=== PATIENT | female | born 1995 | race Caucasian/White ===

== ENCOUNTER 2016-10-13 17:23 | Emergency (ER) | payer MEDICAID ==
[~2016-10-13] VITALS: Ht 157.5 cm; Wt 66.3 kg
[2016-10-13 19:50] VITALS: BP 113/71
== END 2016-10-13 19:50 | disposition home or self-care (01) ==
LOC: ED 17:23
DX: O26.891 Other specified pregnancy related conditions, first trimester (principal); N76.0 Acute vaginitis; B96.89 Other specified bacterial agents as the cause of diseases classified elsewhere; Z3A.01 Less than 8 weeks gestation of pregnancy
CPT/HCPCS: 87491; 87591

== ENCOUNTER 2016-11-30 22:07 | Emergency (ER) | payer MEDICAID ==
[2016-11-30 23:16] LABS: microscopic required? NO
[2016-11-30 23:24] LABS: UA SPECIFIC GRAVITY 1.025 (1.005-1.035); urine erythrocyte NEGATIVE (NEGATIVE)
[2016-11-30 23:26] LABS: BASOPHIL % 0.3 % (0-2); PLATELET COUNT 236 x10^3mcL (130-400)
[2016-11-30 23:27] LABS: RED CELL DISTRIBUTION WIDTH 15.5 % (11.5-14.5)
[2016-11-30 23:37] LABS: CALCIUM 8.4 mg/dL (8.5-10.1); CARBON DIOXIDE 24.7 mmol/L (21-32); CHLORIDE SERUM 105 mmol/L (98-107); CREATININE SERUM 0.8 mg/dL (0.6-1.0); GFR1 > 60 mL/min; GLUCOSE SERUM 92 mg/dL (74-106); POTASSIUM SERUM 3.6 mmol/L (3.5-5.1); SODIUM SERUM 141 mmol/L (136-145)
[2016-11-30 23:41] LABS: ALBUMIN 3.4 g/dL (3.4-5.0); ALKALINE PHOSPHATASE 64 U/L (46-116); ALT/SGPT 91 U/L (14-59); AMYLASE 32 U/L (25-115); AST/SGOT 71 U/L (15-37); BILIRUBIN TOTAL 0.3 mg/dL (0.20-1.00); LIPASE 100 IU/L (73-393); TOTAL PROTEIN, SERUM 7.6 g/dL (6.4-8.2)
[2016-12-01 01:34] VITALS: BP 105/60
== END 2016-12-01 01:34 | disposition home or self-care (01) ==
LOC: ED 22:07
PROVIDERS: Emergency Medicine
DX: R10.9 Unspecified abdominal pain (principal); R19.7 Diarrhea, unspecified; R11.2 Nausea with vomiting, unspecified
CPT/HCPCS: Q0092

== ENCOUNTER 2017-04-09 11:05 | Emergency (ER) | payer MEDICAID ==
[~2017-04-09] VITALS: Ht 157.5 cm; Wt 62.8 kg
[2017-04-09 12:55] LABS: BASOPHIL % 0.5 % (0-2); PLATELET COUNT 253 x10^3mcL (130-400)
[2017-04-09 12:56] LABS: RED CELL DISTRIBUTION WIDTH 15.3 % (11.5-14.5)
[2017-04-09 13:01] LABS: CALCIUM 8.7 mg/dL (8.5-10.1); CHLORIDE SERUM 104 mmol/L (98-107); CREATININE SERUM 0.8 mg/dL (0.6-1.0); GFR1 > 60 mL/min; GLUCOSE SERUM 84 mg/dL (74-106); POTASSIUM SERUM 4.2 mmol/L (3.5-5.1); SODIUM SERUM 139 mmol/L (136-145)
[2017-04-09 13:06] LABS: ALBUMIN 3.5 g/dL (3.4-5.0); ALKALINE PHOSPHATASE 55 U/L (46-116); ALT/SGPT 31 U/L (14-59); AMYLASE 48 U/L (25-115); AST/SGOT 23 U/L (15-37); BILIRUBIN TOTAL 0.2 mg/dL (0.20-1.00); LIPASE 170 IU/L (73-393); TOTAL PROTEIN, SERUM 7.4 g/dL (6.4-8.2)
[2017-04-09 14:28] VITALS: BP 104/61
== END 2017-04-09 14:28 | disposition home or self-care (01) ==
LOC: ED 11:05
PROVIDERS: Specialist
DX: N76.0 Acute vaginitis (principal); R19.7 Diarrhea, unspecified
CPT/HCPCS: 36415; 87491; 87591; J0696

== ENCOUNTER 2017-04-14 00:54 | Emergency (ER) | payer MEDICAID ==
[~2017-04-14] VITALS: Ht 157.5 cm; Wt 63.5 kg
[2017-04-14 03:41] VITALS: BP 112/75
== END 2017-04-14 03:41 | disposition home or self-care (01) ==
LOC: ED 00:54
DX: N76.0 Acute vaginitis (principal); F41.9 Anxiety disorder, unspecified

== ENCOUNTER 2017-05-02 20:51 | Emergency (ER) | payer MEDICAID ==
[2017-05-02 21:19] VITALS: BP 102/76
== END 2017-05-02 23:07 | disposition left against medical advice (07) ==
LOC: ED 20:51
DX: Z53.21 Procedure and treatment not carried out due to patient leaving prior to being seen by health care provider (principal)